=== PATIENT | female | born 1985 | race Caucasian/White ===

== ENCOUNTER 2025-06-14 04:10 | Emergency (ER) | payer OTHER ==
[~2025-06-14] VITALS: Ht 149.9 cm; Wt 106.2 kg
[~2025-06-14 04:10] MED LIST: APRI1 EACH PO; ULTRAM50 MG PO
[2025-06-14] MEDS ORDERED: MENTHOL/CETYLPYRD CL 1 LOZ LOZENGE PO ONE (04:30)
[2025-06-14 04:45] VITALS: BP 119/70
== END 2025-06-14 04:47 | disposition home or self-care (01) ==
LOC: ED 04:10
DX: S01.532A Puncture wound without foreign body of oral cavity, initial encounter (principal); X58.XXXA Exposure to other specified factors, initial encounter
CPT/HCPCS: 99282